=== PATIENT | male | born 1940 | race Caucasian/White ===

== ENCOUNTER → 2017-05-21 | Outpatient (CLI) | payer OTHER, MEDICARE | LOC: FIMAGING 09:10 | DX: I65.22 Occlusion and stenosis of left carotid artery (principal) ==

== ENCOUNTER → 2019-01-18 | Outpatient (CLI) | payer OTHER, MEDICARE | LOC: FIMAGING 13:26 | DX: R91.8 Other nonspecific abnormal finding of lung field (principal) ==

== ENCOUNTER → 2019-01-31 | Outpatient (CLI) | payer OTHER, MEDICARE | LOC: FIMAGING 14:09 | PROVIDERS: ATTEND Internal Medicine | DX: M89.9 Disorder of bone, unspecified (principal); Z85.46 Personal history of malignant neoplasm of prostate ==